=== PATIENT | female | born 1950 | race Caucasian/White ===

== ENCOUNTER 2019-09-30 02:01 | Day surgery (SDC) | payer OTHER, SELFPAY ==
[2019-09-23 14:21] VITALS: BMI 20.6
[2019-09-30 10:59] VITALS: BP 121/43; PULSE 72; RESP 16; TEMP 36.7; O2SAT 100
[2019-09-30] MEDS: LACTATED RINGERS 1,000 ML 150 ML IV CONT (11:04)
--- NOTE | 2019-09-30 11:06 | WPDANESEPPF ---
Anes - Initial Pre Proc Eval Procedure: Operation Date: 09/30/19 13:30 Proposed Procedures p Esophagogastroduodenoscopy - José Miguel Castro MD Date/Time: 09/30/19 11:06 Surgeon: José Miguel Castro MD Pre Op Diagnosis: GERD Patient Data Age: 69 Gender: F Height: 5 ft 4 in Weight: 54.5 kg Last Vital Signs Temp 36.7 C 09/30/19 10:59 Pulse 72 09/30/19 10:59 Resp 16 09/30/19 10:59 BP 121/43 L 09/30/19 10:59 Pulse Ox 100 09/30/19 10:59 Allergies Allergy/AdvReac Type Severity Reaction Status Date / Time tetanus and diphtheria Allergy Unknown Verified 09/30/19 10:57 toxoids tetanus toxoid, adsorbed Allergy Unknown Verified 09/30/19 10:57 Tetanus Vaccines and Toxoid Allergy Unknown Verified 09/30/19 10:57 Home Medications Medication Instructions Recorded Confirmed Type albuterol sulfate 90 mcg/actuation 2 puff INHALATION Q4-6H PRN gm 09/07/19 09/23/19 History aerosol inhaler montelukast 10 mg tablet 10 mg PO DAILY 09/07/19 09/23/19 History tiotropium bromide 18 mcg capsule See Rx Instructions .ROUTE .COMPLEX 09/07/19 09/23/19 History with inhalation device levothyroxine 100 mcg tablet 100 mcg PO DAILY #90 tablet 09/28/19 Rx Patient hx anesthesia problems: none Family hx anesthesia problems: none PMFSH Past Medical History Medical History (Updated 09/30/19 @ 11:07 by Olaf Gaspar MD) Anxiety COPD (chronic obstructive pulmonary disease) GERD (gastroesophageal reflux disease) Family History Family History Mother Cerebrovascular accident, Onset Age: 76 Grandparent Family history of malignant neoplasm Sibling Family history of malignant neoplasm Family history of pancreatic cancer, Onset Age: 56 Father Family history of lung disease Family history of Alzheimer's disease Family history of emphysema, Onset Age: 87 Family history of malignant neoplasm of urinary bladder, Onset Age: 87 Other Family history of arthritis Social History Social History Second hand tobacco smoke exposure: No Alcohol intake: current Anes - Eval Final PreProcedure Day of Procedure 09/30/19 11:06 Patient weight: normal Heart: regular rate and rhythm Lungs: clear to auscultation Airway: Mallampati scale class II Neurological: alert and oriented Last oral intake: >/= 8 hours ASA classification: III Emergent: no Anesthetic plan: proceed Anesthesia type and monitoring: general GIVS and standard monitoring Informed Consent: The patient's anesthetic plan and its attendant risks and benefits were discussed with the patient/family/POA. Questions were solicited and answers provided to the satisfaction of the patient/family/POA.
--- NOTE | 2019-09-30 11:46 | PM.HPGS ---
History of Present Illness History of Present Illness Consent: Risks, benefits, and alternatives have been discussed and questions answered. Patient agrees to proceed with procedure. Chief complaint: GERD Narrative: she is here for longstanding reflux, choking and nausea. Using omeprazole otc, never had EGD Review of Systems Constitutional: Constitutional: Denies headache(s) and Denies weakness Eyes: Eyes: Denies blurry vision ENT: Reports Normal hearing present, Denies headache(s) and Denies neck pain Cardiovascular: Cardiovascular: Denies chest pain and Denies dyspnea Respiratory: Respiratory: Denies dyspnea Gastrointestinal: Gastrointestinal: Reports no additional gastrointestinal complaints Genitourinary: Genitourinary: Denies dysuria Musculoskeletal: Musculoskeletal: Denies neck pain Integumentary/Breasts: Skin/Breast: Denies dry skin Neurologic: Reports Normal hearing present, Denies headache(s) and Denies weakness Psychiatric: Psychiatric: Denies anxiety Endocrine: Endocrine: Denies change in body appearance Hematologic/Lymphatic: Hematologic/Lymphatic: Denies easy bleeding Allergic/Immunologic: Allergic/Immunologic: Denies urticaria PMFSH Past Medical History Medical History (Updated 09/30/19 @ 11:47 by José Miguel Castro MD) Anxiety Choking COPD (chronic obstructive pulmonary disease) GERD (gastroesophageal reflux disease) Nausea Family History Family History Mother Cerebrovascular accident, Onset Age: 76 Grandparent Family history of malignant neoplasm Sibling Family history of malignant neoplasm Family history of pancreatic cancer, Onset Age: 56 Father Family history of lung disease Family history of Alzheimer's disease Family history of emphysema, Onset Age: 87 Family history of malignant neoplasm of urinary bladder, Onset Age: 87 Other Family history of arthritis Social History Social History Second hand tobacco smoke exposure: No Alcohol intake: current Meds Home Medications and Allergies Home Medications Medication Instructions Recorded Confirmed Type albuterol sulfate 90 mcg/actuation 2 puff INHALATION Q4-6H PRN gm 09/07/19 09/23/19 History aerosol inhaler montelukast 10 mg tablet 10 mg PO DAILY 09/07/19 09/23/19 History tiotropium bromide 18 mcg capsule See Rx Instructions .ROUTE .COMPLEX 09/07/19 09/23/19 History with inhalation device levothyroxine 100 mcg tablet 100 mcg PO DAILY #90 tablet 09/28/19 Rx Allergies Allergy/AdvReac Type Severity Reaction Status Date / Time tetanus and diphtheria Allergy Unknown Verified 09/30/19 10:57 toxoids tetanus toxoid, adsorbed Allergy Unknown Verified 09/30/19 10:57 Tetanus Vaccines and Toxoid Allergy Unknown Verified 09/30/19 10:57 Vital Signs Vital Signs - 24 hr 09/30/19 10:59 Temperature 98.0 F Pulse Rate 72 Respiratory Rate 16 Blood Pressure 121/43 L Pulse Oximetry 100 Exam Const: General: comfortable and no acute distress HENMT: General nose exam: Normal nares present Eyes: General: appearance normal, both eyes and all related structures Neck: Neck: no JVD Resp: Auscultation: clear to auscultation bilaterally Cardio: Rate: regular rate Rhythm: regular rhythm GI: Inspection: non-distended GI Palp: Yes Soft to palpation Skin: General skin exam: normal color Neuro: General: gait normal Speech: normal speech Extrem: General: normal to inspection Psych: Mental Status: mental status grossly normal Assessment and Plan Assessment and plan (1) GERD (gastroesophageal reflux disease): Qualifiers: Esophagitis presence: with esophagitis Qualified Code(s): K21.0 - Gastro-esophageal reflux disease with esophagitis Code(s): K21.9 - Gastro-esophageal reflux disease without esophagitis
[2019-09-30 12:07] VITALS: BP 109/55; PULSE 64; RESP 22; O2SAT 97
[2019-09-30 12:17] VITALS: BP 126/65; PULSE 68; RESP 23; O2SAT 96
[2019-09-30 12:27] VITALS: BP 111/72; PULSE 74; RESP 21; O2SAT 98
== END 2019-09-30 12:50 | disposition home or self-care (01) ==
PROVIDERS: PCP Emergency Medicine; Visit Provider Internal Medicine Gastroenterology
PROC: 0DJ08ZZ Inspection of Upper Intestinal Tract, Via Natural or Artificial Opening Endoscopic (ICD-10-PCS; CPT 43235; principal; 2019-09-30 13:30)
DX: K21.0 Gastro-esophageal reflux disease with esophagitis (principal); K29.50 Unspecified chronic gastritis without bleeding; K22.2 Esophageal obstruction; K44.9 Diaphragmatic hernia without obstruction or gangrene; K31.84 Gastroparesis; J44.9 Chronic obstructive pulmonary disease, unspecified; F41.9 Anxiety disorder, unspecified
CPT/HCPCS: 43239; 43249; 88305; C1726; J2704; J7120

== ENCOUNTER 2020-01-18 00:51 | Outpatient (CLI) | payer OTHER, SELFPAY ==
[2020-01-18 17:00] LABS: SARS-CoV-2 RNA PCR Negative
== END 2020-01-18 00:52 | disposition home or self-care (01) ==
LOC: ANHCOVIDDT 00:51
PROVIDERS: PCP Emergency Medicine; Visit Provider Internal Medicine Gastroenterology
DX: Z01.818 Encounter for other preprocedural examination (principal); Z11.59 Encounter for screening for other viral diseases
CPT/HCPCS: 87635; C9803; U0003

== ENCOUNTER 2020-01-20 01:11 | Day surgery (SDC) | payer OTHER, SELFPAY ==
[2020-01-13 14:09] VITALS: BMI 21.9
[2020-01-20] MEDS: LACTATED RINGERS 1,000 ML 150 ML IV CONT (08:03)
[2020-01-20 08:08] VITALS: BP 130/63; PULSE 79; RESP 20; TEMP 37.1; O2SAT 98
--- NOTE | 2020-01-20 08:09 | WPDANESEPPF ---
Anes - Initial Pre Proc Eval Procedure: Operation Date: 01/20/20 08:30 Proposed Procedures p Esophagogastroduodenoscopy - José Miguel Castro MD Date/Time: 01/20/20 08:09 Surgeon: José Miguel Castro MD Pre Op Diagnosis: GERD, Possible Dilatation Patient Data Age: 69 Gender: F Height: 5 ft 4 in Weight: 58 kg Allergies Allergy/AdvReac Type Severity Reaction Status Date / Time tetanus and diphtheria Allergy Unknown Swelling Verified 01/20/20 07:48 toxoids tetanus toxoid, adsorbed Allergy Unknown Swelling Verified 01/20/20 07:48 Tetanus Vaccines and Toxoid Allergy Unknown Swelling Verified 01/20/20 07:48 Home Medications Medication Instructions Recorded Confirmed Type albuterol sulfate 90 mcg/actuation 2 puff INHALATION Q4-6H PRN gm 09/07/19 01/13/20 History aerosol inhaler levothyroxine 100 mcg tablet 100 mcg PO DAILY #90 tablet 09/28/19 01/13/20 Rx omeprazole 40 mg PO BID #60 cap 09/30/19 01/13/20 Rx montelukast 10 mg tablet 10 mg PO DAILY #90 tablet 10/16/19 01/13/20 Rx diclofenac sodium 75 mg 75 mg PO BID #60 tablet 12/14/19 01/13/20 Rx tablet,delayed release sertraline 50 mg tablet 50 mg PO DAILY #30 tablet 01/11/20 01/13/20 Rx tiotropium bromide 18 mcg capsule See Rx Instructions .ROUTE 01/12/20 01/13/20 Rx with inhalation device .COMPLEX #30 inhalation Patient hx anesthesia problems: none Family hx anesthesia problems: none PMFSH Past Medical History Medical History Anxiety Choking COPD (chronic obstructive pulmonary disease) GERD (gastroesophageal reflux disease) Nausea Family History Family History Mother Cerebrovascular accident, Onset Age: 76 Grandparent Family history of malignant neoplasm Sibling Family history of malignant neoplasm Family history of pancreatic cancer, Onset Age: 56 Father Family history of lung disease Family history of Alzheimer's disease Family history of emphysema, Onset Age: 87 Family history of malignant neoplasm of urinary bladder, Onset Age: 87 Other Family history of arthritis Social History Social History Second hand tobacco smoke exposure: No Alcohol intake: current Gender identity (if verbalized by the patient): Female Anes - Eval Final PreProcedure Day of Procedure 01/20/20 08:09 Patient weight: normal Heart: regular rate and rhythm Lungs: clear to auscultation Airway: Mallampati scale class II Neurological: alert and oriented Last oral intake: >/= 8 hours ASA classification: III Emergent: no Anesthetic plan: proceed Anesthesia type and monitoring: general GIVS and standard monitoring Informed Consent: The patient's anesthetic plan and its attendant risks and benefits were discussed with the patient/family/POA. Questions were solicited and answers provided to the satisfaction of the patient/family/POA.
--- NOTE | 2020-01-20 08:34 | PM.HPGS ---
History of Present Illness History of Present Illness Consent: Risks, benefits, and alternatives have been discussed and questions answered. Patient agrees to proceed with procedure. Chief complaint: GERD, Possible Dilatation Narrative: Anum Ordoñez is a 69 year old female with severe erosive esophagitis and dilation 09/2019 better with omeprazole bid Review of Systems Constitutional: Constitutional: Denies headache(s) and Denies weakness Eyes: Eyes: Denies blurry vision ENT: Reports Normal hearing present, Denies headache(s) and Denies neck pain Cardiovascular: Cardiovascular: Denies chest pain and Denies dyspnea Respiratory: Respiratory: Denies dyspnea Gastrointestinal: Gastrointestinal: Reports no additional gastrointestinal complaints Genitourinary: Genitourinary: Denies dysuria Musculoskeletal: Musculoskeletal: Denies neck pain Integumentary/Breasts: Skin/Breast: Denies dry skin Neurologic: Reports Normal hearing present, Denies headache(s) and Denies weakness Psychiatric: Psychiatric: Denies anxiety Endocrine: Endocrine: Denies change in body appearance Hematologic/Lymphatic: Hematologic/Lymphatic: Denies easy bleeding Allergic/Immunologic: Allergic/Immunologic: Denies urticaria PMF Past Medical History Medical History Anxiety Choking COPD (chronic obstructive pulmonary disease) GERD (gastroesophageal reflux disease) Nausea Family History Family History Mother Cerebrovascular accident, Onset Age: 76 Grandparent Family history of malignant neoplasm Sibling Family history of malignant neoplasm Family history of pancreatic cancer, Onset Age: 56 Father Family history of lung disease Family history of Alzheimer's disease Family history of emphysema, Onset Age: 87 Family history of malignant neoplasm of urinary bladder, Onset Age: 87 Other Family history of arthritis Social History Social History Second hand tobacco smoke exposure: No Alcohol intake: current Gender identity (if verbalized by the patient): Female Meds Home Medications and Allergies Home Medications Medication Instructions Recorded Confirmed Type albuterol sulfate 90 mcg/actuation 2 puff INHALATION Q4-6H PRN gm 09/07/19 01/20/20 History aerosol inhaler levothyroxine 100 mcg tablet 100 mcg PO DAILY #90 tablet 09/28/19 01/20/20 Rx omeprazole 40 mg PO BID #60 cap 09/30/19 01/20/20 Rx montelukast 10 mg tablet 10 mg PO DAILY #90 tablet 10/16/19 01/20/20 Rx diclofenac sodium 75 mg 75 mg PO BID #60 tablet 12/14/19 01/20/20 Rx tablet,delayed release sertraline 50 mg tablet 50 mg PO DAILY #30 tablet 01/11/20 01/20/20 Rx tiotropium bromide 18 mcg capsule See Rx Instructions .ROUTE 01/12/20 01/20/20 Rx with inhalation device .COMPLEX #30 inhalation Allergies Allergy/AdvReac Type Severity Reaction Status Date / Time tetanus and diphtheria Allergy Unknown Swelling Verified 01/20/20 07:48 toxoids tetanus toxoid, adsorbed Allergy Unknown Swelling Verified 01/20/20 07:48 Tetanus Vaccines and Toxoid Allergy Unknown Swelling Verified 01/20/20 07:48 Vital Signs Vital Signs - 24 hr 01/20/20 08:08 Temperature 98.8 F Pulse Rate 79 Respiratory Rate 20 Blood Pressure 130/63 Pulse Oximetry 98 Exam Const: General: comfortable and no acute distress HENMT: General nose exam: Normal nares present Eyes: General: appearance normal, both eyes and all related structures Neck: Neck: no JVD Resp: Auscultation: clear to auscultation bilaterally Cardio: Rate: regular rate Rhythm: regular rhythm GI: Inspection: non-distended GI Palp: Yes Soft to palpation Skin: General skin exam: normal color Neuro: General: gait normal Speech: normal speech Extrem: General: normal to inspection Psych:
[2020-01-20 08:48] VITALS: BP 97/81; PULSE 82; RESP 22; O2SAT 97
[2020-01-20 08:58] VITALS: BP 110/56; PULSE 73; RESP 25; O2SAT 93
[2020-01-20 09:08] VITALS: BP 120/53; PULSE 72; RESP 26; O2SAT 98
== END 2020-01-20 09:25 | disposition home or self-care (01) ==
PROVIDERS: PCP Emergency Medicine; Visit Provider Internal Medicine Gastroenterology
PROC: 0DJ08ZZ Inspection of Upper Intestinal Tract, Via Natural or Artificial Opening Endoscopic (ICD-10-PCS; CPT 43235; principal; 2020-01-20 08:30)
DX: K21.9 Gastro-esophageal reflux disease without esophagitis (principal); K22.2 Esophageal obstruction; K44.9 Diaphragmatic hernia without obstruction or gangrene; K31.84 Gastroparesis; J44.9 Chronic obstructive pulmonary disease, unspecified; F41.9 Anxiety disorder, unspecified
CPT/HCPCS: 43249; C1726; J2704; J7120

== ENCOUNTER → 2021-03-24 12:29 | Outpatient (CLI) | payer OTHER, SELFPAY ==
--- NOTE | ~2021-03-24 | DEXA_ITS ---
Bone Density Report Name: Anum Ordoñez Age: 70 Sex: Female Ethnicity: White Date of : 1950 Indication: osteopenia; height loss; asthma or emphysema; postmenopausal Referring Provider: INÉS LIU Study: Bone densitometry was performed. Exam Date: March 24, 2021 Accession number: [id number] Bone Density: Region BMD T-score Z-score Classification AP Spine (L3, L4) 0.868 -2.1 0.2 Osteopenia Femoral Neck (Left) 0.663 -1.7 0.2 Osteopenia Total Hip (Left) 0.707 -1.9 -0.4 Osteopenia Femoral Neck (Right) 0.638 -1.9 -0.1 Osteopenia Total Hip (Right) 0.687 -2.1 -0.5 Osteopenia Total Hip Mean 0.697 -2.0 -0.5 Osteopenia World Health Organization criteria for BMD impression classify patients as: Normal (T-score at or above -1.0), Osteopenia (T-score between -1.0 and -2.5), or Osteoporosis (T-score at or below -2.5). 10-year Fracture Risk(1): Major Osteoporotic Fracture 12% Hip Fracture 3.4% Reported Risk Factors: [place] (), Neck BMD=0.638, BMI=24.3, smoking (1) FRAX(R) Version 3.08. Fracture probability calculated for an untreated patient. Fracture probability may be lower if the patient has received treatment. Previous Exams: Region Exam Age BMD T-score BMD Change BMD Change Date g/cm2 vs Baseline vs Previous AP Spine(L3, L4) 03/24/2021 70 0.868 -2.1 0.009 0.009 09/04/2017 67 0.859 -2.2 Total Hip(Left) 03/24/2021 70 0.707 -1.9 -0.104* -0.104* 09/04/2017 67 0.810 -1.1 Total Hip(Right) 03/24/2021 70 0.687 -2.1 -0.095* -0.095* 09/04/2017 67 0.782 -1.3 *Denotes significance at 95% confidence level, LSC for AP Spine = 0.022 g/cm2, LSC for Total Hip = 0.027 g/cm2 Clinical Information Provided by Patient: Smokes Has used the following medications: Vitamin D, Calcium Has the following medical conditions: Asthma or Emphysema, IBS treated with OTC meds Patient maximum height was 64 Menopause Age: 45 No regular weight bearing exercise Does not regularly consume dairy products Onset of menses at age 12 Number of children 4 Impression: The patient has low bone mass, based on the Total Spine T-score. The patient has an estimated ten-year risk of hip fracture of 3.4% and an estimated ten-year risk of major fracture of 12%, based on the WHO FRAX algorithm. The patient has risk factors, including: smoking. The BMD for the Total Hip(Left) decreased, changing by -0.
--- NOTE | ~2021-03-24 | MM_ITS ---
EXAMINATION: MM screening [facility] HISTORY: Screening mammogram TECHNIQUE: Craniocaudal and mediolateral oblique 3-D tomosynthesis images were obtained and synthetic 2-D images were generated. CAD analysis was submitted and interpreted. COMPARISON: 09/04/2017 BREAST PARENCHYMAL COMPOSITION: There are scattered areas of fibroglandular density. FINDINGS: There is no evidence of suspicious mass, calcification, or architectural distortion to sugg est malignancy in either breast. There has been no suspicious interval change. IMPRESSION: 1. No mammographic evidence of malignancy. 2. Recommend routine screening mammography in one year. BI-RADS Category 1: Negative Reviewed, dictated and finalized at location A.
== END ==
PROVIDERS: PCP Emergency Medicine; Visit Provider Emergency Medicine
DX: Z12.31 Encounter for screening mammogram for malignant neoplasm of breast (principal); Z78.0 Asymptomatic menopausal state; M85.89 Other specified disorders of bone density and structure, multiple sites
CPT/HCPCS: 77063; 77067; 77080

== ENCOUNTER 2022-01-17 07:43 | Outpatient (CLI) | payer OTHER, SELFPAY ==
--- NOTE | ~2022-01-17 | US_ITS ---
EXAMINATION: US art doppler w press LE BI DATE: 01/17/2022 08:40 INDICATION: Peripheral vascular disease. TECHNIQUE: Segmental pressures and plethysmographic and Doppler waveforms of the brachial and lower e xtremity arteries were obtained. COMPARISON: None. Smoking. FINDINGS: Right and left brachial artery pressures of 113 mm Hg and 103 mm Hg, respectively, are concordant (no rmal difference <= 30 mmHg). The right and left high-thigh pressure indices are 1.25 and 1.05, respec tively (normal > 1.2). The right ankle-brachial index (CLIFTON) is 1.09 (normal >= 0.9-1). The right great toe-brachial index (T BI) is 0.46 (normal >= 0.6-0.8). The right lower extremity segmental pressure gradients are increased between the right posterior tibial artery and the right [id number] popliteal artery (normal grad ients <= 20-30 mmHg between adjacent levels on the same leg or the same levels on the two legs). Xi rial waveforms are biphasic with brisk systolic upstrokes throughout the arteries of the right lower limb. The left CLIFTON is 0.92. The left TBI is 0.23. The left lower extremity segmental pressure gradients are increased between the left dorsalis pedis artery and the left [id number]-orhm popliteal artery. Arter ial waveforms are biphasic with brisk systolic upstrokes throughout the arteries of the left lower li mb. IMPRESSION: 1. Bilateral arterial occlusive disease with mild to moderately decreased TBI on the right and on the left borderline CLIFTON, mildly decreased left high thigh pressure index and moderate to severely decrea sed left TBI. Reviewed, dictated and finalized at location A. IMPRESSION: 1. Bilateral arterial occlusive disease with mild to moderately decreased TBI o n the right and on the left borderline CLIFTON, mildly decreased left high thigh pr essure index and moderate to severely decreased left TBI.
== END 2022-01-17 07:44 | disposition home or self-care (01) ==
PROVIDERS: PCP Emergency Medicine; Visit Provider Emergency Medicine
DX: I70.203 Unspecified atherosclerosis of native arteries of extremities, bilateral legs (principal)
CPT/HCPCS: 93923

== ENCOUNTER 2022-07-12 10:06 | Outpatient (CLI) | payer OTHER, SELFPAY ==
--- NOTE | ~2022-07-12 | CT_ITS ---
EXAMINATION: CT lung screening DATE: 07/12/2022 10:26 INDICATION: Long-term smoker TECHNIQUE: Computed tomography (CT) of the chest was performed without intravenous contrast. The dose -length product was 61.85 mGy-cm. Automated exposure control and iterative reconstruction technique w ere employed. COMPARISON: CT dated 06/09/2018 FINDINGS: Heart size is normal. No significant pleural or pericardial effusion. There is atherosclero sis of the aorta and coronary arteries. There is a small hiatal hernia. No thoracic lymphadenopathy. There is emphysema. No endobronchial lesions.There are a few scattered 2-3 mm nodules, predominantly of in the upper lobes. There is a 3 mm nodule in the left upper lobe, image 55. No pneumothorax. Ther e is moderate thoracic and upper lumbar spondylosis. No focal lytic or blastic lesions. IMPRESSION: 1. Lung-RADS category 2: Benign appearance or behavior. Continue annual screening with noncontrast lo w-dose chest CT in 12 months. Reviewed, dictated and finalized at location A. ALS OFFICER IMPRESSION: 1. Lung-RADS category 2: Benign appearance or behavior. Continue annual screeni ng with noncontrast low-dose chest CT in 12 months.
== END 2022-07-12 10:07 | disposition home or self-care (01) ==
PROVIDERS: PCP Emergency Medicine; Visit Provider Emergency Medicine
DX: Z12.2 Encounter for screening for malignant neoplasm of respiratory organs (principal); Z87.891 Personal history of nicotine dependence
CPT/HCPCS: 71271

== ENCOUNTER → 2023-05-06 12:36 | Outpatient (CLI) | payer OTHER, SELFPAY ==
--- NOTE | ~2023-05-06 | MM_ITS ---
EXAMINATION: MM screening [facility] BI [facility] HISTORY: Screening mammogram TECHNIQUE: Craniocaudal and mediolateral oblique 3-D tomosynthesis images were obtained and synthetic 2-D images were generated. CAD analysis was submitted and interpreted. COMPARISON: 03/24/2021, 09/04/2017 BREAST PARENCHYMAL COMPOSITION: There are scattered areas of fibroglandular density. FINDINGS: No suspicious mass, calcification, or architectural distortion are identified in either ivis ast to suggest malignancy. There has been no suspicious interval change. IMPRESSION: 1. No mammographic evidence of malignancy. 2. Recommend routine screening mammography in one year. BI-RADS Category 1: Negative Reviewed, dictated and finalized at location A.
== END ==
PROVIDERS: PCP Emergency Medicine; Visit Provider Emergency Medicine
DX: Z12.31 Encounter for screening mammogram for malignant neoplasm of breast (principal)
CPT/HCPCS: 77063; 77067

== ENCOUNTER 2023-09-11 15:45 | Outpatient (CLI) | payer OTHER, SELFPAY ==
--- NOTE | ~2023-09-11 | XR_ITS ---
EXAMINATION: XR lumbar spine 2-3V DATE: 09/11/2023 16:45 INDICATION: Other low back pain. TECHNIQUE: 3 views of lumbar spine including standing views were obtained. COMPARISON: CT abdomen and pelvis 06/09/2018 FINDINGS: There is 19 degrees dextroscoliosis of lumbar spine. Vertebral body heights are normal. The re is severely decreased disc height at L1-L2 with focal kyphosis and moderately decreased disc heigh t at L2-L3. There is multilevel facet joint osteoarthritis, severe in lower lumbar spine. IMPRESSION: 1. Severe lumbar spondylosis. 2. Lumbar dextroscoliosis. Reviewed, dictated and finalized at location E. NEERING OPERATOR
--- NOTE | ~2023-09-11 | XR_ITS ---
EXAMINATION: XR_[id number]_CR DATE: 09/11/2023 16:45 INDICATION: Right neck pain. TECHNIQUE: 4 views of cervical spine including standing views were obtained. COMPARISON: None. FINDINGS: There is 2 mm anterolisthesis of C3 on C4 and C4 and C5. There is 4 degrees levocurvature o f cervical spine. There is mild chronic anterior wedging of C3 and C5 vertebral bodies. There is mihai rely decreased disc height at C3-C4, C4-C5, C5-C6, and C6-C7. There is multilevel facet joint osteoar thritis, severe on the right at C2-C3 and bilaterally at C3-C4 and C4-C5. There is mild central canal stenosis at C3-C4, C4-C5, C5-C6, and C6-C7. No prevertebral soft tissue swelling. IMPRESSION: 1. Severe cervical spondylosis. Reviewed, dictated and finalized at location E. T OF CARE TECHNICIAN
== END 2023-09-11 15:46 ==
PROVIDERS: PCP Emergency Medicine; Visit Provider Nurse Practitioner Family
DX: M43.02 Spondylolysis, cervical region (principal); M43.06 Spondylolysis, lumbar region; M41.86 Other forms of scoliosis, lumbar region
CPT/HCPCS: 72040; 72100

== ENCOUNTER 2023-11-29 21:38 | Inpatient (IN) | payer OTHER, SELFPAY ==
[2023-11-29] VITALS (10 sets, daily range): BP systolic 59–134; BP diastolic 40–70; PULSE 73–83; RESP 16–27; TEMP 36.6; O2SAT 98–99
--- NOTE | ~2023-11-29 | CT_ITS ---
EXAMINATION: CT brain wo con DATE: 11/29/2023 22:44 INDICATION: Head injury post fall TECHNIQUE: Computed tomography (CT) of the head was performed without intravenous contrast. Sagittal and coronal reconstructions were performed. The mA was adjusted according to patient size. Iterative reconstruction technique was employed. The dose-length product was 605.33 mGy-cm. COMPARISON: None FINDINGS: No fracture. No acute intracranial hemorrhage, acute infarction or abnormal extra axial fluid collect ion. There is moderate scattered white matter hypoattenuation consistent with chronic small vessel is chemic disease. Symmetric prominence of the sulci consistent with mild age-appropriate diffuse cerebr al volume loss. Ventricles are normal and symmetric. No mass/mass effect. Changes of bilateral intrao cular lens replacement. The orbits, paranasal sinuses and mastoid air cells are normal. IMPRESSION: 1. No fracture or acute intracranial process. 2. Age-related changes including mild diffuse volume loss and moderate scattered white matter hypoatt enuation consistent with chronic small vessel ischemic disease. Reviewed, dictated and finalized at location A. IMPRESSION: 1. No fracture or acute intracranial process. 2. Age-related changes including mild diffuse volume loss and moderate scattere d white matter hypoattenuation consistent with chronic small vessel ischemic di sease.
--- NOTE | ~2023-11-29 | CT_ITS ---
EXAMINATION: CT cervical spine wo con DATE: 11/29/2023 22:44 INDICATION: Head injury post fall TECHNIQUE: Computed tomography (CT) of the cervical spine was performed without intravenous contrast. Automated exposure control and iterative reconstruction technique were employed. The dose-length pro duct was 107.44 mGy-cm. COMPARISON: Cervical spine radiographs dated 09/11/2023 FINDINGS: 14 degrees cervical levocurvature. Chronic 3 mm anterolisthesis C3 on C4 and 2 mm anterolisthesis C4 on C5. Vertebral body heights are normal. No acute fracture. Severe osteoarthritis at the atlantoaxia l articulation. Severe disc height loss at C5-C6 and C6-C7. Moderate disc height loss at C3-C4 and C4 -C5 and mild disc height loss at C7-T1. Atherosclerotic calcification at the bilateral carotid bulbs. Mild to moderate emphysema at the apices of the lungs. The following disc levels are specifically di scussed: C2-C3: Disc is mildly bulging. There is mild bilateral uncovertebral joint osteoarthritis. There is s evere right and moderate left facet joint osteoarthritis. There is mild right neural foraminal stenos is. There is no central canal stenosis. C3-C4: Posterior disc osteophyte complex. There is moderate left and severe right uncovertebral joint osteoarthritis. There is severe bilateral facet joint osteoarthritis. There is mild left and moderat e right neural foraminal stenosis. There is mild central canal stenosis. C4-C5: Disc osteophyte complex. There is moderate left and severe right uncovertebral joint osteoarth ritis. There is left and severe right facet joint osteoarthritis. There is altered left and moderate right neural foraminal stenosis. There is mild central canal stenosis. C5-C6: Disc osteophyte complex. There is moderate right and severe left uncovertebral joint osteoarth ritis. There is mild bilateral facet joint osteoarthritis. There is moderate bilateral neural foramin al stenosis. There is mild central canal stenosis. C6-C7: Tissue disc osteophyte complex. There is severe bilateral uncovertebral joint osteoarthritis. There is mild bilateral facet joint osteoarthritis. There is moderate bilateral neural foraminal sten osis. There is mild central canal stenosis. C7-T1: The disc does not extend beyond the endplate margin. There is no uncovertebral joint osteoarth ritis. There is mild bilateral facet joint osteoarthritis. There is no neural foraminal stenosis. The re is no central canal stenosis. IMPRESSION: 1. 14 degrees cervical levocurvature was severe spondylosis. No acute osseous abnormality.. Reviewed, dictated and finalized at location A. IMPRESSION: 1. 14 degrees cervical levocurvature was severe spondylosis. No acute osseous a bnormality..
--- NOTE | ~2023-11-29 | XR_ITS ---
EXAMINATION: XR chest 2V DATE: 11/29/2023 22:32 INDICATION: Syncope TECHNIQUE: AP and lateral views of the chest were obtained. COMPARISON: Chest CT dated 07/12/2022 FINDINGS: Hyperexpansion of lungs, flattening of the diaphragm and increased retrosternal clear space consisten t with mild emphysema better appreciated on the prior CT. No focal airspace opacities, pulmonary heriberto a, pleural effusion or pneumothorax. Heart size is normal. Mild thoracic and moderate upper lumbar sp ondylosis. IMPRESSION: 1. Emphysema. No acute cardiopulmonary disease. Reviewed, dictated and finalized at location A.
--- NOTE | ~2023-11-29 | XR_ITS ---
EXAMINATION: XR shoulder LT min 2V DATE: 11/29/2023 22:33 INDICATION: Left shoulder pain post fall TECHNIQUE: AP internally and externally rotated, AP oblique externally rotated and transscapular Y vi ews of the left shoulder were obtained. COMPARISON: None FINDINGS: Normal alignment. No fracture. Glenohumeral joint is normal. Mild to moderate acromioclavicular oste oarthritis. Soft tissues are unremarkable. IMPRESSION: Mild to moderate acromioclavicular osteoarthritis. No acute osseous abnormality. Reviewed, dictated and finalized at location A. IMPRESSION: Mild to moderate acromioclavicular osteoarthritis. No acute osseous abnormality .
--- NOTE | 2023-11-29 21:56 | ECG_ITS ---
SEE SCANNED COPY FOR CONFIRMED REPORT MTDD
[2023-11-29 22:26] LABS: Basophils Percent Auto 0.3 % (0.2-1.2); Eosinophils Absolute Auto 0.1 K/mm3 (0-0.3); Eosinophils Percent Auto 0.5 % (0-4.4); Hematocrit 36.1 % (37.0-47.0); Hemoglobin 12.5 g/dL (12.0-15.0); Immature Granulocyte Absolute 0.05 K/mm3 (0.00-0.031); Immature Granulocyte Percent A 0.4 % (0-0.5); Lymphocytes Absolute Auto 1.34 K/mm3 (0.9-3.2); Lymphocytes Percent Auto 11.6 % (18.3-44.2); Mean Corpuscular HGB Conc 34.6 g/dl (32-36); Mean Corpuscular Hemoglobin 34.4 pg (26-34); Mean Corpuscular Volume 99.4 fl (80-100); Mean Platelet Volume 10.5 fl (7.4-10.4); Monocytes Absolute Auto 0.7 K/mm3 (0.1-0.6); Monocytes Percent Auto 5.6 % (2.6-8.5); Neutrophils Absolute Auto 9.4 K/mm3 (1.3-6.7); Neutrophils Percent Auto 81.6 % (45.5-73.1); Platelet Count Result 182 k/mm3 (150-375); Red Blood Count 3.63 M/mm3 (4.2-5.4); Red Cell Distribution Width 12.3 % (11.5-14.5); White Blood Count 11.6 K/mm3 (4.5-10.0)
--- NOTE | 2023-11-29 22:26 | PC.NURSE ---
pt taken for scans at this time
--- NOTE | 2023-11-29 22:27 | ED.HEATRA ---
HPI - Head Injury General Chief complaint: Head Injury Stated complaint: fall, head injury Time Seen by Provider: 11/29/23 21:53 Source: patient Mode of arrival: EMS Limitations: no limitations History of Present Illness HPI Narrative: This is a 73 year old female that presents to the ER for a syncopal episode today. Reports she has chronic abdominal problems. Reports she was having some abdominal cramping and trying to have a bowel movement. She then passed out. Her significant other found her on the floor. She reports pain in her left shoulder and neck. Reports a laceration to the posterior head. She is not up to date on tetanus vaccination, but is allergic to it. Denies chest pain, shortness of breath, palpitations, visual changes, vomiting, numbness, weakness. Related Data Home Medications Medication Instructions Recorded Confirmed omeprazole 40 mg capsule,delayed See Rx Instructions .Route .COMPLEX 08/20/23 release Allergies Allergy/AdvReac Type Severity Reaction Status Date / Time tetanus and diphtheria Allergy Unknown Swelling Verified 08/20/23 14:33 toxoids tetanus toxoid, adsorbed Allergy Unknown Swelling Verified 08/20/23 14:33 Tetanus Vaccines and Toxoid Allergy Unknown Swelling Verified 08/20/23 14:33 Review of Systems Review of Systems: CONSTITUTIONAL: Denies fever EYES: Denies visual changes CARDIOVASCULAR: Denies chest pain, palpitations RESPIRATORY: Denies dyspnea. GASTROINTESTINAL: Denies abdominal pain, nausea, vomiting MUSCULOSKELETAL: Reports joint pain, and myalgia. NEUROLOGIC: Denies numbness, or weakness. All systems reviewed & are unremarkable except as noted in HPI and below PMFSH Past Medical History Medical History Adenomatous colon polyp Anxiety Choking COPD (chronic obstructive pulmonary disease) Diarrhea Erosive esophagitis Esophageal ring GERD (gastroesophageal reflux disease) Lupus (systemic lupus erythematosus) Nausea Raynauds disease Schatzki's ring Family History Family History Mother Cerebrovascular accident, Onset Age: 76 Grandparent Family history of malignant neoplasm Sibling Family history of malignant neoplasm Family history of pancreatic cancer, Onset Age: 56 Father Family history of lung disease Family history of Alzheimer's disease Family history of emphysema, Onset Age: 87 Family history of malignant neoplasm of urinary bladder, Onset Age: 87 Other Family history of arthritis Social History Social History Smoking status: Current every day smoker Second hand tobacco smoke exposure: No Alcohol intake: current Lack of Transportation: No Lack of Food: Never True Current Housing: I Have Housing Concerned About Future Housing: No Difficulty Paying Gas/Electric Bills: No Difficulty Paying for Meds: YES Currently Unemployed: No Education: High School Diploma/GED Difficulty w/ Childcare or Family Care: No Gender identity (if verbalized by the patient): Female Exam Narrative: GENERAL: Well-appearing, thin, and in no acute distress. HEAD: Normocephalic. 3 cm linear laceration into subcutaneous tissue to the posterior scalp EYES: PERRLA and EOMI. ENT: Nares clear, no rhinorrhea or epistaxis. Mucous membranes moist. Oropharynx without tonsillar hypertrophy exudate or other lesions. Bilateral TMs pearly jerry non-bulging NECK: Supple. No adenopathy or masses. CHEST: Clear to auscultation. No respiratory distress. No wheezes rales or rhonchi HEART: Regular rate and rhythm. No murmur heard. Normal peripheral pulses. BACK: No midline thoracic or lumbar spine tenderness EXTREMITIES: Normal range of motion. No edema or obvious deformity. Strength equal in bilateral upper and lower extremities SKIN: Warm, dry, no rash. LAMBERT
[2023-11-29 22:39] LABS: Alanine Aminotransferase 18 U/L (6-35); Albumin Level 4.2 g/dL (3.5-5.1); Alkaline Phosphatase 70 U/L (38-126); Anion Gap 6 mmol/L (4-12); Aspartate Amino Transferase 26 U/L (14-36); Bilirubin,Total 0.4 mg/dL (0.2-1.3); Blood Urea Nitrogen 11 mg/dL (7-17); Calcium 9.9 mg/dL (8.4-10.2); Carbon Dioxide 29 mmol/L (22-30); Chloride 101 mmol/L (98-107); Estimated CRCL calculation 47 ml/min; Estimated Glomerular Filt Rate > 60; Glucose 127 mg/dL (65-110); Potassium 3.7 mmol/L (3.4-5.0); Sodium 136 mmol/L (137-145)
[2023-11-29] MEDS: SODIUM CHLORIDE 0.9% IV 1,000 ML 999 ML IV CONT (22:47)
[2023-11-29 22:51] LABS: Troponin I < 0.012 ng/mL (0.000-0.034)
--- NOTE | 2023-11-29 23:21 | PC.NURSE ---
Report from JEANNE Jesus
[2023-11-30] VITALS (15 sets, daily range): BP systolic 113–153; BP diastolic 49–77; PULSE 75–102; RESP 14–29; TEMP 36.6–37.3; O2SAT 91–100; BMI 18.8
[2023-11-30 00:05] LABS: Appearance Urine Clear (Clear); Bacteria Urine 4+ /hpf; Bilirubin Urine Negative (Negative); Blood Urine Negative (Negative); Color Urine Yellow (Yellow); Glucose Urine UA Negative (Negative); Ketones Urine Trace mg/dL (Negative); Leukocyte Esterase Ur 1+ LEU/UL (Negative); Nitrate Urine Positive (Negative); Protein Urine Trace mg/dL (Negative); RBC Urine 0-2 /hpf (0-2); Specific Grav Ur 1.018 (1.001-1.035); Squamous Epithelial Cell Urine Occasional /hpf (Few)
[2023-11-30 00:07] LABS: Add Urine Microscopic? YES
[2023-11-30] MEDS: SODIUM CHLORIDE 0.9% IV 500 ML 999 ML IV CONT (00:31)
[2023-11-30 00:49] LABS: Thyroid Stimulating Hormone Reflex 0.438 uIU/mL (0.465-4.68)
[2023-11-30 01:20] LABS: Free T4 Free Thyroxine Reflex 2.07 ng/dL (0.78-2.19)
[2023-11-30 01:59] LABS: Total Triiodothyronine (T3) 1.06 NG/ML (0.97-1.69)
--- NOTE | 2023-11-30 02:30 | PM.IMHP ---
H&P: HPI History of Present Illness Date/Time: 11/30/23 02:30 Chief Complaint: Passed out Narrative: 73-year-old female with a past medical history COPD, continued tobacco use, GERD with history of erosive esophagitis, essential hypertension, hypothyroidism, SLE, Raynaud's disease and gout among other multiple cor morbidities who presented to the ER after having a syncopal episode. The patient reports that she has a long history of constipation with intermittent diarrhea. It sounds as if when she has a loose stools she often immediately take Imodium and then end up with recurrent constipation. Just prior to presentation she was straining to have a bowel movement. She reported that she has I feel ball of stool in her rectum. She was eventually able to have a bowel movement but after doing so when she stood up she briefly passed out. She hit the back of her head resulting in a laceration which required 6 yasmin in the ER. She reports that she hit the back of her left shoulder and had some tightness. Imaging did not demonstrate any evidence of fracture. She is not on blood thinners. She has had 1 other episode of syncope under similar circumstances. She denies any associated nausea vomiting or abdominal pain. Her UA in the ER was suspicious for possible UTI but she denied any dysuria hematuria or foul-smelling urine. She does report that she has had long-term both bladder and urinary incontinence on a frequent basis for at least the last year. She often does not know when she is leaking stool or urine. She has a longstanding history of what sounds like combined stress and urge urinary incontinence. She has chronic urinary frequency but denies any increased frequency from baseline. She has not had any fevers or chills. She reports that she used to weigh around 170 lb but is now down to 103 lb. She stated that when she changed her diet to a consistent carbohydrate diet to help with her and sons diabetes she had associated weight loss. She also reports that food simply does not taste good because she has chronic dry mouth. She denies any current difficulty swallowing but has had prior esophageal rings and her last EGD was a couple of years ago. She has been compliant with her home medications. She denies a history of hypertension but is on Norvasc. On initial presentation to the ER the patient's blood pressures were in the low 100s. With position changes the patient's systolic blood pressures dropped from 102 supine, 90 sitting, and 59 standing. She received 30 mL/kilos bolus (1.5 L) in the ER. Review of Systems Review of Systems: 12 systems were reviewed with pertinent positives and negatives per HPI. Except as documented in the HPI, all other systems were reviewed and are negative. FORMERLY [facility], [facility] Past Medical History Medical History (Updated 11/30/23 @ 06:59 by Rissa Perez DO) Adenomatous colon polyp Anxiety COPD (chronic obstructive pulmonary disease) Depression Diarrhea Erosive esophagitis GERD (gastroesophageal reflux disease) Gout Hiatal hernia Hypothyroidism Lupus (systemic lupus erythematosus) Mixed hyperlipidemia Mixed stress and urge urinary incontinence Osteopenia Patient reports most recent DEXA scan was performed early 2023 Peripheral neuropathy Raynauds disease Schatzki's ring Vitamin D deficiency Surgical History Surgical History (Updated 11/30/23 @ 06:54 by Rissa Perez DO) H/O lumpectomy With benign pathology History of appendectomy History of colonoscopy with polypectomy Last colonoscopy approximately 2019 History of esophagogastroduodenoscopy (EGD) Most recent January 2020 demonstrating gastric retention, hiatal hernia and esophageal ring performed by Dr. Castro History of tonsillectomy and adenoidectomy Status post lymph node biopsy Inguinal lymph node resection is have Family History Family History Mother Ce
--- NOTE | 2023-11-30 02:47 | ADMGEN ---
This patient, Anum Ordoñez, was admitted to 2 Medical Room 254-01. Patient/family oriented to hospital policies and general routines including ID bracelet, bed and alarms, visiting hours, pain management, procedures, bathroom and other care routines, personal items, smoking policy, room service/diet, and visiting hours. Information on how to activate the Rapid Response Team has been discussed. Patient/Family are encouraged to report perceived risks to care and to ask questions if they do not understand what they are told or what they should do. Report from JEANNE Koo in ED.
[2023-11-30] MEDS: SODIUM CHLORIDE 0.9% IV 1,000 ML 125 ML IV CONT (03:37)
[2023-11-30 06:49] LABS: Hemoglobin 12.1 g/dL (12.0-15.0); Mean Corpuscular HGB Conc 33.6 g/dl (32-36); Mean Corpuscular Hemoglobin 34.1 pg (26-34); Mean Corpuscular Volume 101.4 fl (80-100); Mean Platelet Volume 10.6 fl (7.4-10.4); Platelet Count Result 149 k/mm3 (150-375); Red Blood Count 3.55 M/mm3 (4.2-5.4); Red Cell Distribution Width 12.3 % (11.5-14.5); White Blood Count 8.6 K/mm3 (4.5-10.0)
[2023-11-30] MEDS: LEVOTHYROXINE SODIUM 100 MCG TABLET PO (06:52)
[2023-11-30 07:07] LABS: Anion Gap 4 mmol/L (4-12); Blood Urea Nitrogen 9 mg/dL (7-17); Calcium 9.1 mg/dL (8.4-10.2); Carbon Dioxide 24 mmol/L (22-30); Chloride 109 mmol/L (98-107); Estimated CRCL calculation 62 ml/min; Estimated Glomerular Filt Rate > 60; Glucose 94 mg/dL (65-110); Potassium 3.4 mmol/L (3.4-5.0); Sodium 137 mmol/L (137-145)
[2023-11-30] MEDS: SERTRALINE HCL 50 MG TABLET 100 MG PO (09:40)
[2023-11-30] MEDS: FLUTICASONE PROPIONATE 0.05% NA SPR 16 GM BTL (*BKC) 2 SPRAY NASAL (09:40)
[2023-11-30] MEDS: amLODIPine BESYLATE 5 MG TABLET PO (09:40)
[2023-11-30] MEDS: MONTELUKAST SODIUM 10 MG TABLET PO (09:40)
[2023-11-30] MEDS: UMECLIDINIUM BROMIDE 62.5 MCG ELLIPTA 1 PUFF INHALATION (09:58)
--- NOTE | 2023-11-30 10:42 | PM.IMPN ---
Progress Note: A&P Assessment and Plan (1) Syncope: Qualifiers: Syncope type: vasovagal syncope Qualified Code(s): R55 - Syncope and collapse Code(s): R55 - Syncope and collapse Status: Acute Assessment and Plan: Suspect syncope is likely multifactorial due to vasovagal and + orthostatic vitals -head CT reveals no fracture or acute intracranial process, age-related changes, consistent with chronic small-vessel ischemic disease -s/p:IV 2L fluid resuscitation in the ED -continue fluid NS 100ml/hr -check orthostatic vitals in the a.m. -continue telemetry monitoring -check echocardiogram -blood cultures pending -PT/OT eval and treat (2) Orthostatic hypotension: Code(s): I95.1 - Orthostatic hypotension Status: Acute Assessment and Plan: see plan above (3) Head injury: Qualifiers: Encounter type: initial encounter Qualified Code(s): S09.90XA - Unspecified injury of head, initial encounter Code(s): S09.90XA - Unspecified injury of head, initial encounter Status: Acute Assessment and Plan: - start daily wound care (4) Laceration of scalp: Qualifiers: Encounter type: subsequent encounter Qualified Code(s): S01.01XD - Laceration without foreign body of scalp, subsequent encounter Code(s): S01.01XA - Laceration without foreign body of scalp, initial encounter Status: Acute Assessment and Plan: -see plan above (5) Abnormal urinalysis: Code(s): R82.90 - Unspecified abnormal findings in urine Status: Acute Assessment and Plan: -asymptomatic bacteriuria, no leukocytosis, fever, dysuria or increased urinary incontinence reported -given 1 dose IV Rocephin in the ER, will hold off on ABX until urine culture results -continue monitor for signs of infection (6) Hypothyroidism (acquired): Code(s): E03.9 - Hypothyroidism, unspecified Status: Acute Assessment and Plan: Chronic TSH is low -levothyroxine recently decreased from 100 mcg a day to 75 mcg daily -continue to monitor (7) Tobacco abuse: Code(s): Z72.0 - Tobacco use Status: Acute Assessment and Plan: Patient is cachectic in appearance and reports intentional weight loss since she has made dietary changes (8) GERD (gastroesophageal reflux disease): Qualifiers: Esophagitis presence: with esophagitis Qualified Code(s): K21.0 - Gastro-esophageal reflux disease with esophagitis Code(s): K21.9 - Gastro-esophageal reflux disease without esophagitis Status: Acute Assessment and Plan: Without esophagitis -continue home medication pantoprazole 40 mg b.i.d. Plan Continue home medications: VTE Prophylaxis: SCDs DIET: Regular diet/consult dietitian Anticipated hospital stay: > 2 days Code Status: Full Subjective Date/time seen: 11/30/23 10:42 Review of Systems Review of Systems: 12 systems were reviewed with pertinent positives and negatives per HPI. Except as documented in the HPI, all other systems were reviewed and are negative. Exam Narrative: Weight 47.8 kg BMI 19.3 Const: Other: Cachectic, Thin body habitus, no acute distress, appears older than stated age HENMT: Other: Approximately 5 cm jagged laceration to the posterior parietal/occipital with [address], adequate hemostasis with a small amount of seepage of blood, Poor dentition with multiple teeth broken off at the gumline, multiple dental caries, mucous membranes are tacky, no oral pharyngeal erythema Eyes: Other: Pupils are equal and reactive, no scleral icterus, no conjunctival pallor Neck: Other: No JVD, no significant lymphadenopathy Resp: Other: Decreased breath sounds bilaterally in all lung barrera, no increased work of breathing Cardio: Other: Regular rate, regular rhythm, 2+ bilateral radial pedal pulses GI: Other: Sof
[2023-11-30] MEDS: SODIUM CHLORIDE 0.9% IV 1,000 ML 100 ML IV CONT (12:15)
[2023-11-30] MEDS: KETOROLAC 15 MG/ML VIAL (*BKC) IV PUSH (14:27)
[2023-11-30] MEDS: PANTOPRAZOLE 40 MG TABLET PO (20:31)
[2023-12-01] VITALS (9 sets, daily range): BP systolic 110–144; BP diastolic 53–84; PULSE 73–100; RESP 14–16; TEMP 36.5–36.9; O2SAT 93–98
[2023-12-01 05:45] LABS: Basophils Percent Auto 0.4 % (0.2-1.2); Eosinophils Absolute Auto 0.1 K/mm3 (0-0.3); Eosinophils Percent Auto 1.2 % (0-4.4); Hematocrit 37.8 % (37.0-47.0); Hemoglobin 12.9 g/dL (12.0-15.0); Immature Granulocyte Absolute 0.01 K/mm3 (0.00-0.031); Immature Granulocyte Percent A 0.1 % (0-0.5); Lymphocytes Absolute Auto 2.25 K/mm3 (0.9-3.2); Lymphocytes Percent Auto 33.6 % (18.3-44.2); Mean Corpuscular HGB Conc 34.1 g/dl (32-36); Mean Corpuscular Hemoglobin 33.3 pg (26-34); Mean Corpuscular Volume 97.7 fl (80-100); Mean Platelet Volume 10.7 fl (7.4-10.4); Monocytes Absolute Auto 0.6 K/mm3 (0.1-0.6); Monocytes Percent Auto 8.4 % (2.6-8.5); Neutrophils Absolute Auto 3.8 K/mm3 (1.3-6.7); Neutrophils Percent Auto 56.3 % (45.5-73.1); Platelet Count Result 158 k/mm3 (150-375); Red Blood Count 3.87 M/mm3 (4.2-5.4); Red Cell Distribution Width 12.5 % (11.5-14.5); White Blood Count 6.7 K/mm3 (4.5-10.0)
[2023-12-01 06:10] LABS: Alanine Aminotransferase 18 U/L (6-35); Albumin Level 4.1 g/dL (3.5-5.1); Alkaline Phosphatase 77 U/L (38-126); Anion Gap 6 mmol/L (4-12); Aspartate Amino Transferase 29 U/L (14-36); Bilirubin,Total 0.5 mg/dL (0.2-1.3); Blood Urea Nitrogen 8 mg/dL (7-17); Calcium 9.7 mg/dL (8.4-10.2); Carbon Dioxide 26 mmol/L (22-30); Chloride 107 mmol/L (98-107); Estimated CRCL calculation 62 ml/min; Estimated Glomerular Filt Rate > 60; Glucose 89 mg/dL (65-110); Potassium 3.3 mmol/L (3.4-5.0); Sodium 139 mmol/L (137-145)
[2023-12-01] MEDS: LEVOTHYROXINE SODIUM 75 MCG TABLET PO (07:50)
--- NOTE | 2023-12-01 08:21 | PM.IMPN ---
Progress Note: A&P Assessment and Plan (1) Syncope: Qualifiers: Syncope type: vasovagal syncope Qualified Code(s): R55 - Syncope and collapse Code(s): R55 - Syncope and collapse Status: Acute Assessment and Plan: Suspect syncope is likely multifactorial due to vasovagal and + orthostatic vitals -head CT reveals no fracture or acute intracranial process, age-related changes, consistent with chronic small-vessel ischemic disease -s/p:IV 2L fluid resuscitation in the ED - d/c NS 100ml/hr -check orthostatic vitals in the a.m. daily -continue telemetry monitoring -check echocardiogram pending -blood cultures pending -PT/OT eval and treat (2) Orthostatic hypotension: Code(s): I95.1 - Orthostatic hypotension Status: Acute Assessment and Plan: see plan above (3) Head injury: Qualifiers: Encounter type: initial encounter Qualified Code(s): S09.90XA - Unspecified injury of head, initial encounter Code(s): S09.90XA - Unspecified injury of head, initial encounter Status: Acute Assessment and Plan: - start daily wound care (4) Laceration of scalp: Qualifiers: Encounter type: subsequent encounter Qualified Code(s): S01.01XD - Laceration without foreign body of scalp, subsequent encounter Code(s): S01.01XA - Laceration without foreign body of scalp, initial encounter Status: Acute Assessment and Plan: -see plan above (5) Abnormal urinalysis: Code(s): R82.90 - Unspecified abnormal findings in urine Status: Acute Assessment and Plan: -asymptomatic bacteriuria, no leukocytosis, fever, dysuria or increased urinary incontinence reported -given 1 dose IV Rocephin in the ER, Preliminary urine culture with positive for E coli -restart Rocephin 1 g IV Q 24 hours until sensitivity report available (6) Hypothyroidism (acquired): Code(s): E03.9 - Hypothyroidism, unspecified Status: Acute Assessment and Plan: Chronic TSH is low -levothyroxine recently decreased from 100 mcg a day to 75 mcg daily -continue to monitor (7) Tobacco abuse: Code(s): Z72.0 - Tobacco use Status: Acute Assessment and Plan: Patient is cachectic in appearance and reports intentional weight loss since she has made dietary changes (8) GERD (gastroesophageal reflux disease): Qualifiers: Esophagitis presence: with esophagitis Qualified Code(s): K21.0 - Gastro-esophageal reflux disease with esophagitis Code(s): K21.9 - Gastro-esophageal reflux disease without esophagitis Status: Acute Assessment and Plan: Without esophagitis -continue home medication pantoprazole 40 mg b.i.d. Plan Continue home medications: reconciled VTE Prophylaxis: SCDs DIET: Regular diet/consult dietitian Anticipated hospital stay: > 2 days Code Status: Full Subjective Date/time seen: 12/01/23 08:21 Review of Systems Review of Systems: 12 systems were reviewed with pertinent positives and negatives per HPI. Except as documented in the HPI, all other systems were reviewed and are negative. Exam Narrative: Weight 47.8 kg BMI 19.3 Const: Other: Cachectic, Thin body habitus, no acute distress, appears older than stated age HENMT: Other: Approximately 5 cm jagged laceration to the posterior parietal/occipital with [address], adequate hemostasis with a small amount of seepage of blood, Poor dentition with multiple teeth broken off at the gumline, multiple dental caries, mucous membranes are tacky, no oral pharyngeal erythema Eyes: Other: Pupils are equal and reactive, no scleral icterus, no conjunctival pallor Neck: Other: No JVD, no significant lymphadenopathy Resp: Other: Decreased breath sounds bilaterally in all lung barrera, no increased work of breathing Cardio: Other: Regular rate, regular rhythm, 2+
[2023-12-01] MEDS: UMECLIDINIUM BROMIDE 62.5 MCG ELLIPTA 1 PUFF INHALATION (09:47)
[2023-12-01] MEDS: MONTELUKAST SODIUM 10 MG TABLET PO (10:13)
[2023-12-01] MEDS: FLUTICASONE PROPIONATE 0.05% NA SPR 16 GM BTL (*BKC) 2 SPRAY NASAL (10:13)
[2023-12-01] MEDS: amLODIPine BESYLATE 5 MG TABLET PO (10:13)
[2023-12-01] MEDS: SERTRALINE HCL 50 MG TABLET 100 MG PO (10:13)
[2023-12-01] MEDS: KETOROLAC 15 MG/ML VIAL (*BKC) IV PUSH (14:02)
[2023-12-01] MEDS: ACETAMINOPHEN 325 MG TABLET 650 MG PO (21:00)
[2023-12-01] MEDS: PANTOPRAZOLE 40 MG TABLET PO (21:00)
[2023-12-01] MEDS: MELATONIN 3 MG TABLET PO (21:00)
[2023-12-02] VITALS (9 sets, daily range): BP systolic 115–138; BP diastolic 52–60; PULSE 66–99; RESP 16; TEMP 36.5–36.8; O2SAT 92–98; BMI 18.8
--- NOTE | 2023-12-02 | ECHO_ITS ---
Patient Info Name: Anum Ordoñez Age: 73 years : 1950 Gender: Female Ht: 62 in Wt: 103 lbs BSA: 1.42 m2 HR: 77 bpm BP: 144 / 84 mmHg Technical Quality: Fair Exam Date: 12/02/2023 7:48 AM Exam Location: Echo Lab Patient Status: Inpatient Admit Date: 12/01/2023 Staff Ordering Physician: Kasey Jha APRN Advertising Sales Assistant: Latosha Anne RDCS Attending Provider: Rissa Perez DO Referring Physician: Yudelka DARNELL; Exam Type: CA echo dop color flow w con Study Info Indications R55 - Syncope and collapse Complete two-dimensional, color flow and Doppler transthoracic echocardiogram is performed with contrast to opacify the left ventricle and to improve the deliniation of the left ventricle endocardial borders. Contrast/Agitated Saline Contrast/Ag. Saline: Definity Amount: 1.00 ml Administered By: Latosha Anne RDCS Existing IV Access: Yes IV Access Condition: patent with no signs of infiltration Summary 1. Definity contrast administered improved wall motion interpretation. 2. Left ventricular chamber dimension is normal. 3. Left ventricular systolic function is normal, estimated at 60-65%. 4. The left ventricular diastolic function is grade I diastolic dysfunction. 5. E/e' 12 is mildly elevated. 6. There is mild aortic valve sclerosis. 7. The mitral valve has mildly calcified annulus. 8. No pulmonary hypertension, estimated pulmonary arterial systolic pressure is 29 mmHg. Left Ventricle E/e' 12 is mildly elevated. Definity contrast administered improved wall motion interpretation. Left ventricular chamber dimension is normal. Left ventricular systolic function is normal, estimated at 60-65%. The left ventricular diastolic function is grade I diastolic dysfunction. Right Ventricle Right ventricular chamber dimension is normal. Right ventricular systolic function is normal. Left Atria Left atrial chamber dimension is normal. Right Atria Right atrial chamber dimension is normal. Aortic Valve The aortic valve is trileaflet. There is mild aortic valve sclerosis. There is no aortic valve stenosis. There is no aortic valve regurgitation. Pulmonic Valve There is no pulmonic regurgitation. Mitral Valve The mitral valve has mildly calcified annulus. There is no mitral valve stenosis. There is no mitral valve regurgitation. Tricuspid Valve There is no tricuspid valve regurgitation. No pulmonary hypertension, estimated pulmonary arterial systolic pressure is 29 mmHg. Pericardium/Pleural There is no pericardial effusion. Inferior Vena Cava Normal inferior vena cava with >50% collapse upon inspiration consistent with normal right atrial pressure, 5 mmHg. Aorta The aortic root size at the sinus of Valsalva is normal. Left Ventricular Outflow Tract Name Value Normal LVOT 2D LVOT Diameter 1.89 cm LVOT Doppler LVOT Peak Gradient 3 mmHg LVOT Mean Gradient 1 mmHg LVOT VTI 19.04 cm LVOT VTI/AV VTI Ratio 0.80 LVOT Stroke Volume 53.15 ml LVOT CO 3.51 l/min
[2023-12-02 06:00] LABS: Basophils Absolute Auto 0.1 K/mm3 (0.0-0.1); Basophils Percent Auto 0.7 % (0.2-1.2); Eosinophils Absolute Auto 0.1 K/mm3 (0-0.3); Eosinophils Percent Auto 1.3 % (0-4.4); Hematocrit 39.9 % (37.0-47.0); Hemoglobin 13.5 g/dL (12.0-15.0); Immature Granulocyte Absolute 0.01 K/mm3 (0.00-0.031); Immature Granulocyte Percent A 0.1 % (0-0.5); Lymphocytes Absolute Auto 2.23 K/mm3 (0.9-3.2); Lymphocytes Percent Auto 31.7 % (18.3-44.2); Mean Corpuscular HGB Conc 33.8 g/dl (32-36); Mean Corpuscular Hemoglobin 33.4 pg (26-34); Mean Corpuscular Volume 98.8 fl (80-100); Mean Platelet Volume 10.7 fl (7.4-10.4); Monocytes Absolute Auto 0.6 K/mm3 (0.1-0.6); Monocytes Percent Auto 8.4 % (2.6-8.5); Neutrophils Absolute Auto 4.1 K/mm3 (1.3-6.7); Neutrophils Percent Auto 57.8 % (45.5-73.1); Platelet Count Result 167 k/mm3 (150-375); Red Blood Count 4.04 M/mm3 (4.2-5.4)
[2023-12-02 06:09] LABS: Alanine Aminotransferase 18 U/L (6-35); Alkaline Phosphatase 77 U/L (38-126); Anion Gap 4 mmol/L (4-12); Aspartate Amino Transferase 26 U/L (14-36); Bilirubin,Total 0.5 mg/dL (0.2-1.3); Blood Urea Nitrogen 10 mg/dL (7-17); Calcium 9.3 mg/dL (8.4-10.2); Carbon Dioxide 28 mmol/L (22-30); Chloride 103 mmol/L (98-107); Estimated CRCL calculation 53 ml/min; Estimated Glomerular Filt Rate > 60; Glucose 89 mg/dL (65-110); Potassium 3.1 mmol/L (3.4-5.0); Sodium 135 mmol/L (137-145)
[2023-12-02] MEDS: LEVOTHYROXINE SODIUM 75 MCG TABLET PO (06:10)
[2023-12-02] MEDS: ACETAMINOPHEN 325 MG TABLET 650 MG PO (06:11)
[2023-12-02] MEDS: UMECLIDINIUM BROMIDE 62.5 MCG ELLIPTA 1 PUFF INHALATION (07:40)
--- NOTE | 2023-12-02 08:04 | PCPTNOTE ---
Attempted to see patient for PT, however patient was getting a test done. Unable to see patient at this time.
[2023-12-02] MEDS: PERFLUTREN LIPID MICROSPHERES 1.5 ML VIAL DILUTED TO 10 ML TOTAL VOLUME IV PUSH (08:20)
[2023-12-02] MEDS: FLUTICASONE PROPIONATE 0.05% NA SPR 16 GM BTL (*BKC) 2 SPRAY NASAL (08:55)
[2023-12-02] MEDS: MONTELUKAST SODIUM 10 MG TABLET PO (08:55)
[2023-12-02] MEDS: amLODIPine BESYLATE 5 MG TABLET PO (08:55)
[2023-12-02] MEDS: PANTOPRAZOLE 40 MG TABLET PO (08:55)
[2023-12-02] MEDS: SERTRALINE HCL 50 MG TABLET 100 MG PO (09:00)
--- NOTE | 2023-12-02 09:02 | IVDEFINITY ---
Prior to administration of IV Definity the patient was educated on the risks and benefits of the imaging enhancing agent including potential adverse side effects. The patient verbalized understanding. Allergies were verified. No exclusion criteria were identified and at least one of the following inclusion criteria were met: 1) physician request, 2) patient technically difficult to image (per the [place] [employer] guidelines of two or more segments not discernable within the apical view), or 3) questionable left ventricular function. ?
--- NOTE | 2023-12-02 11:59 | PM.DS ---
DS: Admitting Diagnosis Discharge Date 12/02/2023 Admitting Diagnosis Syncope/Dehydration/UTI DS: Discharge Diagnosis Discharge Diagnosis (1) Syncope: Qualifiers: Syncope type: vasovagal syncope Qualified Code(s): R55 - Syncope and collapse Code(s): R55 - Syncope and collapse Status: Acute Assessment and Plan: Suspect syncope is likely multifactorial due to vasovagal and + orthostatic vitals -head CT reveals no fracture or acute intracranial process, age-related changes, consistent with chronic small-vessel ischemic disease -s/p:IV 2L fluid resuscitation in the ED - d/c NS 100ml/hr -check orthostatic vitals in the a.m. daily -continue telemetry monitoring -check echocardiogram pending -blood cultures pending -PT/OT eval and treat (2) Orthostatic hypotension: Code(s): I95.1 - Orthostatic hypotension Status: Acute Assessment and Plan: see plan above (3) Head injury: Qualifiers: Encounter type: initial encounter Qualified Code(s): S09.90XA - Unspecified injury of head, initial encounter Code(s): S09.90XA - Unspecified injury of head, initial encounter Status: Acute Assessment and Plan: - start daily wound care (4) Laceration of scalp: Qualifiers: Encounter type: subsequent encounter Qualified Code(s): S01.01XD - Laceration without foreign body of scalp, subsequent encounter Code(s): S01.01XA - Laceration without foreign body of scalp, initial encounter Status: Acute Assessment and Plan: -see plan above (5) Abnormal urinalysis: Code(s): R82.90 - Unspecified abnormal findings in urine Status: Acute Assessment and Plan: -asymptomatic bacteriuria, no leukocytosis, fever, dysuria or increased urinary incontinence reported -given 1 dose IV Rocephin in the ER, Preliminary urine culture with positive for E coli -restart Rocephin 1 g IV Q 24 hours until sensitivity report available (6) Hypothyroidism (acquired): Code(s): E03.9 - Hypothyroidism, unspecified Status: Acute Assessment and Plan: Chronic TSH is low -levothyroxine recently decreased from 100 mcg a day to 75 mcg daily -continue to monitor (7) Tobacco abuse: Code(s): Z72.0 - Tobacco use Status: Acute Assessment and Plan: Patient is cachectic in appearance and reports intentional weight loss since she has made dietary changes (8) GERD (gastroesophageal reflux disease): Qualifiers: Esophagitis presence: with esophagitis Qualified Code(s): K21.0 - Gastro-esophageal reflux disease with esophagitis Code(s): K21.9 - Gastro-esophageal reflux disease without esophagitis Status: Acute Assessment and Plan: Without esophagitis -continue home medication pantoprazole 40 mg b.i.d. (9) Acute UTI: Code(s): N39.0 - Urinary tract infection, site not specified Status: Acute Assessment and Plan: ECOLI -Rocephin x 3 doses -Discharged on Augmentin Plan Disposition: Discharged to home with DS: Summary Hospital Course Reason for hospitalization: Syncope/Dehydration/UTI Hospital Course: Admission: Medical Record 73-year-old female with a past medical history COPD, continued tobacco use, GERD with history of erosive esophagitis, essential hypertension, hypothyroidism, SLE, Raynaud's disease and gout among other multiple cor morbidities who presented to the ER after having a syncopal episode.? The patient reports that she has a long history of constipation with intermittent diarrhea.? It sounds as if when she has a loose stools she often immediately take Imodium and then end up with recurrent constipation.? Just prior to presentation she was straining to have a bowel movement.? She reported that she has I feel ball of stool in her rectum.? She was eventually able to have a bowel movement but after doing so when she stood up sh
[2023-12-02] MEDS: POTASSIUM CHLORIDE 20 MEQ ER TABLET 40 MEQ PO (12:06)
== END 2023-12-02 14:40 | disposition home or self-care (01) | DRG 312 ==
LOC: ANHED 11-30 02:04 → ANH2MED 11-30 02:08
PROVIDERS: Nurse Practitioner; Admitting Provider Internal Medicine; Emergency Provider Physician Assistant; PCP Emergency Medicine; Visit Provider Nurse Practitioner Family
DX: I95.1 Orthostatic hypotension (principal); E43 Unspecified severe protein-calorie malnutrition; N39.0 Urinary tract infection, site not specified; R64 Cachexia; Z68.1 Body mass index [BMI] 19.9 or less, adult; S01.01XA Laceration without foreign body of scalp, initial encounter; E03.9 Hypothyroidism, unspecified; B96.20 Unspecified Escherichia coli [E. coli] as the cause of diseases classified elsewhere; K21.9 Gastro-esophageal reflux disease without esophagitis; E86.0 Dehydration; M32.9 Systemic lupus erythematosus, unspecified; I73.00 Raynaud's syndrome without gangrene; F17.210 Nicotine dependence, cigarettes, uncomplicated
CPT/HCPCS: 36415; 70450; 71046; 72125; 73030; 80048; 80053; 81001; 84439; 84443; 84480; 84484; 85025; 85027; 87040; 87077; 87086; 87088; 87186; 93005; 94640; 96361; 96365; 96375; 97110; 97161; 97165; 97530; 97535; 99285; A9270; C8929; G0378; J0696; J1885; J7030; J7040; Q9957

== ENCOUNTER 2023-12-16 19:37 | Emergency (ER) | payer OTHER, SELFPAY ==
[2023-12-16 19:42] VITALS: BP 139/113; PULSE 93; RESP 20; TEMP 36.7; O2SAT 100
[2023-12-16 20:43] VITALS: BP 109/58; PULSE 86; RESP 18; O2SAT 98
--- NOTE | 2023-12-16 21:14 | ECG_ITS ---
SEE SCANNED COPY FOR CONFIRMED REPORT MTDD
--- NOTE | 2023-12-16 21:15 | ED.FEMALEGU ---
HPI - Female Genitourinary General Chief complaint: Urogenital-Female Stated complaint: urine smells and rogers Time Seen by Provider: 12/16/23 20:39 History of Present Illness HPI Narrative: 73-year-old female with a reported history of SLE and are not certain as to the emergency department for concerns for urinary tract infection. Patient states she has had some dysuria for the past couple of days associated nausea. States she was recently admitted to our hospital after synopal event was found have a UTI tested positive for E coli. She was sent home with Augmentin. States she took the antibiotics as directed and had improvement, however symptoms returned again a couple of days ago. She denies abdominal pain, chest pain or shortness of breath, fever, vomiting or diarrhea. She is reporting some lightheadedness when she goes from a sitting to standing position which is not abnormal for her. Related Data Home Medications Medication Instructions Recorded Confirmed omeprazole 40 mg capsule,delayed 40 mg PO BID 08/20/23 12/09/23 release amlodipine 5 mg tablet 5 mg PO DAILY 11/30/23 12/09/23 mometasone 50 mcg/actuation nasal 2 spray intranasal DAILY PRN 11/30/23 12/09/23 spray Allergy Symptoms montelukast 10 mg tablet 10 mg PO DAILY 11/30/23 12/09/23 sertraline 100 mg tablet 100 mg PO DAILY 11/30/23 12/09/23 tiotropium bromide 18 mcg capsule 1 cap inhalation DAILY 11/30/23 12/09/23 with inhalation device (Spiriva with HandiHaler) Allergies Allergy/AdvReac Type Severity Reaction Status Date / Time tetanus and diphtheria Allergy Unknown Swelling Verified 12/16/23 19:39 toxoids tetanus toxoid, adsorbed Allergy Unknown Swelling Verified 12/16/23 19:39 Tetanus Vaccines and Toxoid Allergy Unknown Swelling Verified 12/16/23 19:39 Review of Systems Review of Systems: CONSTITUTIONAL: Denies fever, chills, or sweats. EYES: Denies visual changes, redness, or discharge. ENT: Denies rhinorrhea, congestion, sore throat, or otalgia. CARDIOVASCULAR: Denies chest pain, palpitations, or edema. RESPIRATORY: Denies cough or dyspnea. GASTROINTESTINAL: Denies abdominal pain, nausea, vomiting, or diarrhea. GENITOURINARY: See HPI SKIN: Denies rash or itching. MUSCULOSKELETAL: Denies back pain, joint pain, or myalgia. NEUROLOGIC: Denies headache, numbness, or weakness. PSYCHIATRIC: Denies anxiety or depression. [facility] Past Medical History Medical History Adenomatous colon polyp Anxiety COPD (chronic obstructive pulmonary disease) Depression Diarrhea Erosive esophagitis GERD (gastroesophageal reflux disease) Gout Hiatal hernia Hypothyroidism Lupus (systemic lupus erythematosus) Mixed hyperlipidemia Mixed stress and urge urinary incontinence Osteopenia Patient reports most recent DEXA scan was performed early 2023 Peripheral neuropathy Raynauds disease Schatzki's ring Vitamin D deficiency Surgical History Surgical History H/O lumpectomy With benign pathology History of appendectomy History of colonoscopy with polypectomy Last colonoscopy approximately 2019 History of esophagogastroduodenoscopy (EGD) Most recent January 2020 demonstrating gastric retention, hiatal hernia and esophageal ring performed by Dr. Castro History of tonsillectomy and adenoidectomy Status post lymph node biopsy Inguinal lymph node resection is have Family History Family History Mother Cerebrovascular accident, Onset Age: 76 Kidney disease Grandparent Family history of malignant neoplasm Sibling Pancreatic cancer Father Dementia Bladder cancer COPD (chronic obstructive pulmonary disease) Lung cancer Other Family history of arthritis Social History Social History (Reviewed 12/16/23 @ 21:17 by Ashlee Torres
[2023-12-16 21:16] LABS: Basophils Absolute Auto 0.1 K/mm3 (0.0-0.1); Basophils Percent Auto 0.4 % (0.2-1.2); Eosinophils Absolute Auto 0.1 K/mm3 (0-0.3); Eosinophils Percent Auto 0.7 % (0-4.4); Hematocrit 41.4 % (37.0-47.0); Immature Granulocyte Absolute 0.06 K/mm3 (0.00-0.031); Immature Granulocyte Percent A 0.4 % (0-0.5); Lymphocytes Absolute Auto 2.23 K/mm3 (0.9-3.2); Lymphocytes Percent Auto 16.4 % (18.3-44.2); Mean Corpuscular HGB Conc 33.8 g/dl (32-36); Mean Corpuscular Hemoglobin 33.5 pg (26-34); Mean Platelet Volume 10.1 fl (7.4-10.4); Monocytes Absolute Auto 0.8 K/mm3 (0.1-0.6); Monocytes Percent Auto 5.6 % (2.6-8.5); Neutrophils Absolute Auto 10.4 K/mm3 (1.3-6.7); Neutrophils Percent Auto 76.5 % (45.5-73.1); Platelet Count Result 253 k/mm3 (150-375); Red Blood Count 4.18 M/mm3 (4.2-5.4); Red Cell Distribution Width 12.9 % (11.5-14.5); White Blood Count 13.6 K/mm3 (4.5-10.0)
[2023-12-16] MEDS: SODIUM CHLORIDE 0.9% IV 1,000 ML 999 ML IV CONT (21:25)
[2023-12-16] MEDS: ONDANSETRON INJ 4 MG/2 ML VIAL IV PUSH (21:25)
[2023-12-16 21:28] LABS: Alanine Aminotransferase 19 U/L (6-35); Albumin Level 4.7 g/dL (3.5-5.1); Alkaline Phosphatase 90 U/L (38-126); Anion Gap 10 mmol/L (4-12); Aspartate Amino Transferase 26 U/L (14-36); Bilirubin,Total 0.5 mg/dL (0.2-1.3); Blood Urea Nitrogen 17 mg/dL (7-17); Calcium 10.9 mg/dL (8.4-10.2); Carbon Dioxide 23 mmol/L (22-30); Chloride 102 mmol/L (98-107); Estimated Glomerular Filt Rate > 60; Glucose 96 mg/dL (65-110); Potassium 3.9 mmol/L (3.4-5.0); Sodium 135 mmol/L (137-145)
[2023-12-16 21:34] LABS: Appearance Urine Clear (Clear); Bacteria Urine None Seen /hpf; Bilirubin Urine Negative (Negative); Blood Urine Negative (Negative); Color Urine Yellow (Yellow); Glucose Urine UA Negative (Negative); Ketones Urine Negative (Negative); Leukocyte Esterase Ur 2+ LEU/UL (Negative); Need Manual Microscopic Reviewed; Nitrate Urine Negative (Negative); Non Pathogenic Casts 0-2; Protein Urine Negative (Negative); RBC Urine 0-2 /hpf (0-2); Specific Grav Ur 1.008 (1.001-1.035); Squamous Epithelial Cell Urine None Seen /hpf (Few); Urobilinogen Urine 0.2 mg/dL (<2.0); WBC Urine 0-5 /hpf (0-3); pH Urine 6.5 (5.0-9.0)
[2023-12-16 21:36] LABS: Add Urine Microscopic? YES
[2023-12-16] MEDS: SULFAMETHOXAZOLE/TRIMETHOPRIM 800/160 MG DS TABLET 1 TAB PO (22:40)
[2023-12-16 22:53] VITALS: BP 110/66; PULSE 90; RESP 14; O2SAT 95
== END 2023-12-16 22:54 | disposition home or self-care (01) ==
PROVIDERS: Emergency Medicine; Emergency Provider Physician Assistant; PCP Emergency Medicine
DX: R82.90 Unspecified abnormal findings in urine (principal); F41.8 Other specified anxiety disorders; K21.9 Gastro-esophageal reflux disease without esophagitis; E03.9 Hypothyroidism, unspecified; E78.2 Mixed hyperlipidemia; E55.9 Vitamin D deficiency, unspecified; M32.9 Systemic lupus erythematosus, unspecified; F17.210 Nicotine dependence, cigarettes, uncomplicated
CPT/HCPCS: 36415; 80053; 81001; 85025; 93005; 96361; 96374; 99284; A9270; J2405; J7030

== ENCOUNTER 2024-02-28 16:45 | Emergency (ER) | payer OTHER, SELFPAY ==
[2024-02-28 19:42] LABS: Basophils Percent Auto 0.4 % (0.2-1.2); Eosinophils Percent Auto 0.4 % (0-4.4); Hematocrit 39.1 % (37.0-47.0); Hemoglobin 13.6 g/dL (12.0-15.0); Immature Granulocyte Absolute 0.01 K/mm3 (0.00-0.031); Immature Granulocyte Percent A 0.1 % (0-0.5); Lymphocytes Absolute Auto 1.76 K/mm3 (0.9-3.2); Lymphocytes Percent Auto 26.1 % (18.3-44.2); Mean Corpuscular HGB Conc 34.8 g/dl (32-36); Mean Corpuscular Hemoglobin 34.3 pg (26-34); Mean Corpuscular Volume 98.7 fl (80-100); Monocytes Absolute Auto 0.5 K/mm3 (0.1-0.6); Neutrophils Absolute Auto 4.4 K/mm3 (1.3-6.7); Platelet Count Result 198 k/mm3 (150-375); Red Blood Count 3.96 M/mm3 (4.2-5.4); Red Cell Distribution Width 12.9 % (11.5-14.5); White Blood Count 6.8 K/mm3 (4.5-10.0)
[2024-02-28 19:46] VITALS: BP 107/63; PULSE 82; RESP 18; O2SAT 99
[2024-02-28 19:53] LABS: Prothrombin Time 13.1 Seconds (11.1-14.7)
[2024-02-28 19:55] LABS: Alanine Aminotransferase 14 U/L (6-35); Albumin Level 4.4 g/dL (3.5-5.1); Alkaline Phosphatase 77 U/L (38-126); Anion Gap 9 mmol/L (4-12); Aspartate Amino Transferase 24 U/L (14-36); Bilirubin,Total 0.5 mg/dL (0.2-1.3); Blood Urea Nitrogen 12 mg/dL (7-17); Calcium 10.1 mg/dL (8.4-10.2); Carbon Dioxide 26 mmol/L (22-30); Chloride 100 mmol/L (98-107); Estimated CRCL calculation 38 ml/min; Estimated Glomerular Filt Rate > 60; Glucose 91 mg/dL (65-110); Lipase 68 U/L (23-300); Potassium 3.7 mmol/L (3.4-5.0); Sodium 135 mmol/L (137-145)
--- NOTE | 2024-02-28 20:39 | ED.NAVMDI ---
HPI - Nausea/Vomiting/Diarrhea General Chief complaint: Nausea/Vomiting/Diarrhea Stated complaint: n/v for months , coffee ground vomit x2d Time Seen by Provider: 02/28/24 19:21 Source: patient Mode of arrival: ambulatory Limitations: no limitations History of Present Illness HPI Narrative: this is a 73-year-old female that presents to the emergency department for nausea and vomiting. Reports this is been ongoing over the last several months. She has history of needing a dilation. Reports she is feeling similar to then. Every time she eats she feels like it gets stuck. She eventually has to vomit. She does take omeprazole daily. Her last endoscopy was 4 years ago. Tried to make a GI appointment, but could not get in to be seen until July. Related Data Home Medications Medication Instructions Recorded Confirmed omeprazole 40 mg capsule,delayed 40 mg PO BID 08/20/23 12/09/23 release amlodipine 5 mg tablet 5 mg PO DAILY 11/30/23 12/09/23 mometasone 50 mcg/actuation nasal 2 spray intranasal DAILY PRN 11/30/23 12/09/23 spray Allergy Symptoms sertraline 100 mg tablet 100 mg PO DAILY 11/30/23 12/09/23 Allergies Allergy/AdvReac Type Severity Reaction Status Date / Time tetanus and diphtheria Allergy Unknown Swelling Verified 02/28/24 16:47 toxoids tetanus toxoid, adsorbed Allergy Unknown Swelling Verified 02/28/24 16:47 Tetanus Vaccines and Toxoid Allergy Unknown Swelling Verified 02/28/24 16:47 Review of Systems Review of Systems: CONSTITUTIONAL: Denies fever GASTROINTESTINAL: Reports abdominal pain, nausea, vomiting All systems reviewed & are unremarkable except as noted in HPI and below PMFSH Past Medical History Medical History (Updated 02/29/24 @ 02:55 by Jeanie Bruno PA-C) Abnormal urinalysis Acute UTI Adenomatous colon polyp Anxiety COPD (chronic obstructive pulmonary disease) Depression Diarrhea Encounter for staple removal Erosive esophagitis GERD (gastroesophageal reflux disease) Gout Head injury Hiatal hernia History of hiatal hernia Hypothyroidism Laceration Laceration of scalp Lupus (systemic lupus erythematosus) Mixed hyperlipidemia Mixed stress and urge urinary incontinence Osteopenia Patient reports most recent DEXA scan was performed early 2023 Peripheral neuropathy Raynauds disease Schatzki's ring Vitamin D deficiency Surgical History Surgical History H/O lumpectomy With benign pathology History of appendectomy History of colonoscopy with polypectomy Last colonoscopy approximately 2019 History of esophagogastroduodenoscopy (EGD) Most recent January 2020 demonstrating gastric retention, hiatal hernia and esophageal ring performed by Dr. Castro History of tonsillectomy and adenoidectomy Status post lymph node biopsy Inguinal lymph node resection is have Family History Family History Mother Cerebrovascular accident, Onset Age: 76 Kidney disease Grandparent Family history of malignant neoplasm Sibling Pancreatic cancer Father Dementia Bladder cancer COPD (chronic obstructive pulmonary disease) Lung cancer Other Family history of arthritis Social History Social History Social History: The patient lives at home with her and 1 of her sons. Her and her raised 3 children. She has smoked as much as 2-2.5 packs of cigarettes per day. She started smoking at the age of 11 in continues to smoke 0.5 packs of cigarettes per day. Code status: Full code (patient does not have advanced directives in place) Surrogate decision maker: Smoking packs per day: 2 Smoking cigarettes per day: 40.0 Years smoked: 62 Smoking pack-years: 124.00 Smoking status: Current every day smoker Tobacco type: cigarettes
[2024-02-28 20:45] LABS: Appearance Urine Turbid (Clear); Bacteria Urine 4+ /hpf; Bilirubin Urine Negative (Negative); Blood Urine Negative (Negative); Color Urine Yellow (Yellow); Glucose Urine UA Negative (Negative); Ketones Urine Negative (Negative); Leukocyte Esterase Ur 3+ LEU/UL (Negative); Need Manual Microscopic Reviewed; Nitrate Urine Positive (Negative); Protein Urine Trace mg/dL (Negative); RBC Urine 0-2 /hpf (0-2); Specific Grav Ur 1.012 (1.001-1.035); Squamous Epithelial Cell Urine Occasional /hpf (Few); Urobilinogen Urine 0.2 mg/dL (<2.0); WBC Urine 51-100 /hpf (0-3); pH Urine 8.5 (5.0-9.0)
[2024-02-28 20:51] LABS: Amorphous Sediment Urine Moderate
[2024-02-28 20:52] LABS: Add Urine Microscopic? YES
[2024-02-28] MEDS: SODIUM CHLORIDE 0.9% IV 1,000 ML 999 ML IV CONT (21:00)
[2024-02-28] MEDS: ONDANSETRON INJ 4 MG/2 ML VIAL IV PUSH (21:02)
[2024-02-28] MEDS: PANTOPRAZOLE SODIUM IV 40 MG VIAL 80 MG IV PUSH (21:03)
[2024-02-28 21:14] VITALS: BP 124/64; PULSE 59; RESP 15; TEMP 36.4; O2SAT 100
[2024-02-28 22:26] VITALS: BP 108/48; PULSE 66; RESP 15; O2SAT 100
[2024-02-28 23:22] VITALS: BP 108/56; PULSE 79; RESP 16; O2SAT 100
[2024-02-29 01:15] LABS: Hematocrit 34.9 % (37.0-47.0)
--- NOTE | 2024-02-29 01:31 | PC.NURSE ---
Repeat H&H given to [facility].
[2024-02-29 02:04] VITALS: BP 110/48; PULSE 76; RESP 15; O2SAT 100
--- NOTE | 2024-02-29 02:35 | PC.NURSE ---
[facility] called to accept patient; room S103-[address] Cook. Report called to Yosef ANGEL at [phone].
[2024-02-29 02:59] VITALS: BP 110/54; PULSE 69; RESP 15; O2SAT 100
== END 2024-02-29 03:02 | disposition short-term general hospital (02) ==
PROVIDERS: Emergency Provider Physician Assistant; PCP Emergency Medicine
DX: N39.0 Urinary tract infection, site not specified (principal); R11.2 Nausea with vomiting, unspecified; R13.10 Dysphagia, unspecified; J44.9 Chronic obstructive pulmonary disease, unspecified; I73.00 Raynaud's syndrome without gangrene; E78.2 Mixed hyperlipidemia; E55.9 Vitamin D deficiency, unspecified; G62.9 Polyneuropathy, unspecified; K44.9 Diaphragmatic hernia without obstruction or gangrene; K22.10 Ulcer of esophagus without bleeding; K21.9 Gastro-esophageal reflux disease without esophagitis; N39.46 Mixed incontinence; M85.80 Other specified disorders of bone density and structure, unspecified site; M32.9 Systemic lupus erythematosus, unspecified; M10.9 Gout, unspecified; F41.9 Anxiety disorder, unspecified; F32.A Depression, unspecified; F17.210 Nicotine dependence, cigarettes, uncomplicated; Z87.440 Personal history of urinary (tract) infections; Z86.010 Personal history of colon polyps
CPT/HCPCS: 36415; 80053; 81001; 83690; 85014; 85018; 85025; 85610; 85730; 87077; 87086; 87088; 87186; 96361; 96365; 96375; 99284; 99285; J0696; J2405; J2470; J7030